=== PATIENT | male | born 1960 | race Caucasian/White ===

== ENCOUNTER 2018-10-21 21:15 | Inpatient (IN) ==
[2018-10-21] MEDS ORDERED: DILTIAZEM 25 MG/5 ML VIAL IV ONE (21:22)
[2018-10-21] MEDS ORDERED: LACTATED RINGERS 1,000 ML IV ONE (21:22)
--- NOTE | 2018-10-21 21:33 | Emergency Department Note ---
SOB HPI - General Chief Complaint: Shortness of Breath/Dyspnea Stated Complaint: shortness of breath Time Seen by Provider: 10/21/18 21:31 Source: patient Mode of arrival: ambulatory Limitations: no limitations - History of Present Illness Patient discharged from the hospital short time ago. Went home and he felt short of breath. He had specific instructions to return for any sudden shortness of breath and/or chest pain or tachycardia and he did notice some palpitations. Diagnosis having atrial tachycardia with flutter and a 2-1 rate. Left ear with heart rate between 80 and 90 after receiving a by mouth diltiazem. Denies chest pain at this time. Feels a little bit short of breath, is not hypoxic, is not tachypneic MD Complaint: shortness of breath - Related Data Previous Rx's Medication Instructions Recorded Diltiazem [Cardizem Cd] 120 mg PO DAILY #30 cap 10/21/18 Allergies Allergy/AdvReac Type Severity Reaction Status Date / Time No Known Drug Allergies Allergy Unverified 10/19/18 16:03 Review of Systems All systems ED: reviewed and negative except as stated. Past Medical History - Past Medical History Medical history: Reports: other (history of atrial flutter, history of pulmonary fibrosis.) Surgical history ED: Reports: non-contributory Family history: Reports: no significant family history - Social History smoking status: Former smoker Alcohol use: Reports: Rarely Drug use: Reports: none Physical Exam Limitations: no limitations General appearance: alert, anxious, in no apparent distress Head: atraumatic, normocephalic Eye: Present: normal appearance, PERRL, EOMI, conjunctival injection ENT: normal exam, normal oropharynx, mucous membranes moist, TM's normal bilaterally Neck: Present: normal inspection, full ROM, trachea midline Chest: Present: normal inspection, symmetric chest wall rise. Absent: tenderness Respiratory: Present: normal lung sounds bilaterally. Absent: respiratory distress, rales/crackles Cardiovascular: Present: regular rate, normal rhythm, tachycardia, normal heart sounds Abdominal: Present: soft, normal bowel sounds. Absent: distention, tenderness : Present: normal inspection Extremities: Present: normal inspection Back: Present: normal inspection. Absent: CVA tenderness (R), CVA tenderness (L) Neurological: Present: alert, oriented X3, CN II-XII intact. Absent: motor sensory deficit Psychiatric: Present: normal affect Skin: Present: warm, dry, intact, erythema, other (slight facial erythema) Course Vital Signs Temperature 97.5 F 10/21/18 21:16 Pulse Rate 132 H 10/21/18 21:16 Respiratory Rate 18 10/21/18 21:16 Blood Pressure 148/111 10/21/18 21:16 Pulse Oximetry (%) 94 10/21/18 21:16 Temperature 97.5 F 10/21/18 21:16 Pulse Rate 132 H 10/21/18 22:57 Respiratory Rate 20 10/21/18 22:57 Blood Pressure 118/87 10/21/18 22:53 Pulse Oximetry (%) 93 10/21/18 22:57 Shortness of Breath/Dyspnea - [facility] Narrative Medical decision making narrative: His second troponin was negative. We did do a lateral chest x-ray now showing a little bit of fluid behind his heart. I believe he has CHF associated with his rapid atrial rate. Normal CBC thus I do not think it is infectious. Final diagnosis atrial flutter, new onset with rapid ventricular rate. Controlled with diltiazem IV. Also by mouth Cardizem. He still needs further monitoring, he did get 20 of Lasix IV and is currently diuresing. Discussed hospital admission/observation with Dr. Anand - Lab Data Lab Results 10/21/18 Range/Units 21:28 Troponin T < 0.01 (0-0.03) ng/ml Disposition Pt seen by STITCHER OPERATOR/PA only: No Clinical Impression: Atrial flutter Disposition: Xfer As Inpt ([facility]) Condition: Good Referrals: Millie Harrington, [Primary Care Provider] -
[2018-10-21] MEDS ORDERED: FUROSEMIDE 20 MG/2 ML VIAL IV ONE (22:16)
[2018-10-21] MEDS ORDERED: POTASSIUM CHLORIDE 10 MEQ TABLET PO ONE (22:17)
--- NOTE | 2018-10-22 00:05 | Internal Med History&Physical ---
Medical - H&P: HPI Patient information: Note initiated : 10/22/18 at 12:00 am Service Date, if different from initiated Date: [] Patient: Shay Ramirez a 58 y/o M admitted on for shortness of breath. Chief Complaint: [] History of present illness: Mr. Ramirez is a 58 year old M presents with shortness of breath. Patient states she had increased shortness of breath for 1 month ever since he got sick with upper respiratory tract infection or a sinus infection at [facility]. He has had a productive cough of sputum which is sometimes clear sometimes yellow sometimes white, this cough is been present since he got sick a month ago however the cough is much better. Shortness of breath is since she stayed the same. He saw a primary care provider who had a CT of the chest that showed some atelectasis and old scarring and a referral was made to pulmonology but he has not seen breeding manager yet. He was also referred to see Dr. Arce who said he saw a year ago and was told he had an irregular rhythm but no new medications were started he also told he had poor cardiac function but no medications were started at that time. He called Dr. Arce's office today to make an appointment and they asked about his symptoms after told him he has had a heart elevated heart rate for a month as well as some shortness of breath they told him to go to the ER. In the ER earlier today he is had a tachycardia 130s. Case discussed with cleaning associate at [facility] Dr. Catalan patient was given a p.o. diltiazem whi ch brought his heart rate down. EKG which was reviewed between ER physician and cleaning associate appear to be flutter 2-1 at that time. Now it appears to be variable block flutter. His heart rate is essentially controlled at rest but anytime he moves it will jump up to 120s 130s. He did not receive any improvement in his shortness of breath after better rate controlled earlier today in the ER. And was still short of breath when he went home and thus came back. He denies any chest pain. He has good oxygenation. Chest x-ray showed some cephalization and prominent pulmonary vasculature. Was given Lasix 20 IV in the ER with 650 urine output. He denies any new leg swelling he does have a little bit of puffiness that he notices while wearing work boots but that has not changed in the past couple months. 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 denies headache/fever/chills/nausea/vomiting/chest or abdominal pain/cough/dyspnea/diarrhea. 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) History of tobacco abuse (Chronic) Pinched nerve (Chronic ~2015) Psoriasis (Chronic ~2001) Varicose veins of both lower extremities (Chronic ~2015) Arthritis (Chronic ~2009) Genital herpes simplex (Acute ~1979) Past Surgical History (Last Reviewed 10/19/18 @ 16:21 by Millie Harrington DO) H/O colonoscopy (Acute) History of herniorrhaphy (Chronic ~2007) History of umbilical hernia repair (Chronic ~1974) Family History (Last Reviewed 10/19/18 @ 16:21 by Millie Harrington DO) Grandfather Lung cancer Social History (Last Updated 10/19/18 @ 20:24 by Millie Harrington DO) Patient quit smoking 2003, denies alcohol use, denies drug use, 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, lives by himself Home medications include aspirin occasionally and a statin Medical - H&P: Meds Home Medications Medication Instructions Recorded Confirmed Type Cephalexin [Keflex] 500 mg PO BID 10/21/18 10/21/18 History Diltiazem [Cardizem Cd] 120 mg PO DAILY #30 cap 10/21/18 10/21/18 Rx Allergies Allergy/AdvReac Type Severity Reaction Status Date / Time No Known Drug Allergies Allergy Unverified 10/19/18 16:03 Medical - H&P: Exam - Constitutional Vitals: Temp Pulse Resp BP Pulse Ox 97.5 F 52 L 15 106/70 94 10/21/18 21:16 10/21/18 23:37 10/21/18 23:37 10/21/18 23:32 10/21/18 23:37 Exam: General: Alert, Awake, No acute Distress Eyes/N/T: EOMI, PEERL, Head/Neck: neck supple, normocephalic atraumatic, unable to appreciate JVD given his neck girth CV: Irregular, No murmurs, normal s1/s2 Pulm: Bilateral rales noted, to mid lung on right, no wheezing Abd: soft, nontender, +BS x4 Ext: no clubbing/cyanosis, trace bilateral lower extremity edema Neuro: Alert, no focal deficits, moves all extremities, CN 2-12 grossly intact, symmetrical strength b/l upper/lower, sensations intact b/l upper/lower Skin: warm/dry Medical - H&P: Reslt - Labs Labs: Cardiac Enzymes 10/21/18 Range/Units 21:28 Troponin T < 0.01 (0-0.03) ng/ml - Impressions Chest x-ray with pulmonary edema Medical - H&P: A/P - Narrative A/P Narrative: A: *acute on chronic systolic CHF: *Aflutter w/variable av block: -chadsvasc=1 *dyspnea: 2/2 above + underlying fibrosis/scarring & atelectasis *CKD II: * * P: -IV lasix, PO aldactone -echo pending -i/o, weights -prn lopressor (avoid CCB given low EF), start toprol in AM and ACEI when renal fxn stable -ASA -f/u CXR - -f/u outpt with Arce and Pulmonology -ppx: lovenox
[2018-10-22] MEDS ORDERED: SENNOSIDES 1 TABLET PO PRN ×2 (00:26→11:28)
[2018-10-22] MEDS ORDERED: POLYETHYLENE GLYCOL 3350 17 GM PACKET PO PRN ×2 (00:26→11:28)
[2018-10-22] MEDS ORDERED: ONDANSETRON 4 MG/2 ML VIAL IV PRN ×2 (00:26→11:28)
[2018-10-22] MEDS ORDERED: ACETAMINOPHEN 325 MG TABLET PO PRN ×2 (00:26→11:28)
[2018-10-22] MEDS ORDERED: IPRATROPIUM/ALBUTEROL 3 ML AMPUL.NEB NEB PRN ×2 (00:26→11:28)
[2018-10-22] MEDS ORDERED: POTASSIUM CHLORIDE 40 MEQ in DEXTROSE 5% IN WATER 500 ML IV PRN ×2 (00:26→11:28)
[2018-10-22] MEDS ORDERED: MAGNESIUM SULFATE 2 GM/50 ML BAG IV PRN ×2 (00:26→11:28)
[2018-10-22] MEDS ORDERED: LACTULOSE 20 GM/30 ML ORAL.SOL PO PRN ×2 (00:26→11:28)
[2018-10-22] MEDS ORDERED: POTASSIUM CHLORIDE 20 MEQ TABLET PO PRN ×4 (00:26→11:28)
--- NOTE | 2018-10-22 03:58 | XRay Report ---
CLINICAL INFORMATION: SOB COMPARISON: 10/21/2018 FINDINGS: The heart is moderately enlarged, but unchanged. Mediastinum is unremarkable. The pulmonary vessels have increased in caliber and are now moderately congested. Interstitial edema throughout both lungs show slight progression. Moderate patchy superimposed patchy airspace disease in the right mid and lower lung as progressed. There are small bilateral pleural effusions IMPRESSION: Moderate CHF - progressing from film earlier today Moderate patchy airspace disease in the right mid and lower lung likely represents superimposed infiltrate, rather than atypically distributed edema. Small bilateral pleural effusions Interpreted and Authenticated by: Wilfred Marr 10/22/18
[2018-10-22 05:01] LABS: Basophils # (Auto) 0 K/mcL (0.0-0.3); Basophils % (Auto) 0.5 % (0.0-2.0); Eosinophils # (Auto) 0 K/mcL (0.0-0.7); Eosinophils % (Auto) 0 % (0.0-7.0); Granulocytes % (Auto) 70.9 % (38.0-78.0); Lymphocytes # (Auto) 1.3 K/mcL (1.5-4.8); Lymphocytes % (Auto) 19.6 % (15.5-49.0); Mean Cell Volume 90.8 fL (80.0-100.0); Mean Corpuscular HGB Conc 32.7 g/dL (31.0-36.0); Monocytes # (Auto) 0.6 K/mcL (0.1-0.9); Platelet Count 163 K/mcL (140-440); RBC 5.35 M/mcL (4.50-5.90); Red Cell Distribution Width 14.3 % (11.5-14.5)
[2018-10-22 05:16] LABS: ALT/SGPT 33 U/l (0-40); Albumin 3.4 gm/dL (3.2-5.2); Albumin/Globulin Ratio 1.4 (1.0-2.3); Alkaline Phosphatase 45 U/L (39-117); Bilirubin,Direct 0.2 mg/dL (0.0-0.3); Blood Urea Nitrogen 18 mg/dl (6-20); Gamma Glutamyl Transpeptidase 31 U/L (8-61); Uric Acid 6.6 mg/dL (2.5-8.0)
[2018-10-22] MEDS ORDERED: 0.9 % SODIUM CHLORIDE 10 ML SYRINGE IV SCH (06:00)
--- NOTE | 2018-10-22 06:26 | Internal Med Progress Note ---
Medical - PN: Subj Patient information: Note initiated : 10/22/18 at 6:24 am Service Date, if different from initiated Date: [] Patient: Shay Ramirez a 58 y/o M admitted on 10/22/18 for shortness of breath. Chief Complaint: [] Interval history: Mr. Ramirez is a 58 year old M presents with shortness of breath. Patient states she had increased shortness of breath for 1 month ever since he got sick with upper respiratory tract infection or a sinus infection at [facility]. He has had a productive cough of sputum which is sometimes clear sometimes yellow sometimes white, this cough is been present since he got sick a month ago however the cough is much better. Shortness of breath is since she stayed the same. He saw a primary care provider who had a CT of the chest that showed some atelectasis and old scarring and a referral was made to pulmonology but he has not seen reeling machine setup operator yet. He was also referred to see Dr. Arce who said he saw a year ago and was told he had an irregular rhythm but no new medications were started he also told he had poor cardiac function but no medications were started at that time. He called Dr. Arce's office today to make an appointment and they asked about his symptoms after told him he has had a heart elevated heart rate for a month as well as some shortness of breath they told him to go to the ER. In the ER earlier today he is had a tachycardia 130s. Case discussed with national guard member at [facility] Dr. Catalan patient was given a p.o. diltiazem which brought his heart rate down. EKG which was reviewed between ER physician and national guard member appear to be flutter 2-1 at that time. Now it appears to be variable block flutter. His heart rate is essentially controlled at rest but anytime he moves it will jump up to 120s 130s. He did not receive any improvement in his shortness of breath after better rate controlled earlier today in the ER. And was still short of breath when he went home and thus came back. He denies any chest pain. He has good oxygenation. Chest x-ray showed some cephalization and prominent pulmonary vasculature. Was given Lasix 20 IV in the ER with 650 urine output. He denies any new leg swelling he does have a little bit of puffiness that he notices while wearing work boots but that has not changed in the past couple months. 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 No new complaints. No shortness of breath at rest. No lightheadedness. Review of Systems: denies headache/fever/chills/nausea/vomiting/chest or abdominal pain/cough/dyspnea/diarrhea. Otherwise see above. - Constitutional Vitals: Vital Signs Temp Pulse Resp BP Pulse Ox 98.0 F 67 16 123/72 91 10/22/18 04:01 10/22/18 06:01 10/22/18 06:01 10/22/18 06:01 10/22/18 06:01 Period Temp Pulse Resp BP Sys/Smith Pulse Ox Last 24 Hr 97.5 F-98.4 F 48-132 14-25 106-153/58-111 89-96 Intake and Output 10/21/18 10/22/18 10/22/18 21:59 05:59 13:59 Intake Total 312 / 312 Output Total 1575 / 1575 Balance -1263 / -1263 Weight 102.058 kg 102.058 kg Intake & Output: Intake & Output 10/21/18 10/22/18 10/22/18 21:59 05:59 13:59 Intake Total 312 / 312 Output Total 1575 / 1575 Balance -1263 / -1263 Weight 102.058 kg 102.058 kg Intake: IV 312 / 312 Lactated Ringers 1,000 ml @ 312 / 312 Wide Open IV BOLUS ONE Rx#: [id number] Output: Urine Catheter Amount 225 / 225 Void Amount 1350 / 1350 Other: Urine Appearance Clear Urine Color Light Kayleigh # Voids 1 Exam: General: Alert, Awake, No acute Distress Eyes/N/T: EOMI, Head/Neck: neck supple, CV: Irregular, No murmurs, Pulm: Bilateral rales noted, to mid lung on right, no wheezing Abd: soft, nontender, +BS x4 Ext: no clubbing/cyanosis, trace-1+ b/l LE edema (R>L) Neuro: Alert, no focal deficits, moves all extremities, Skin: warm/dry Medical - PN: Obj Da - Labs CBC & Chem 7: 10/22/18 03:47 10/22/18 03:47 Labs: Abnormal Lab Results 10/22/18 10/22/18 03:47 03:47 Lymph # (Auto) 1.3 L Calcium 8.4 L Phosphorus 2.1 L Total Bilirubin 1.1 H Total Protein 5.8 L Meds: Medications Acetaminophen (Tylenol) 650 mg PO Q6HP PRN PRN Reason: PAIN/FEVER > 101 Albuterol/Ipratropium (Duoneb) 3 ml NEB Q4HP PRN PRN Reason: Shortness Of Breath Aspirin (Ecotrin) 81 mg PO DAILY [facility] Enoxaparin Sodium (Lovenox) 40 mg SQ DAILY [facility] Furosemide (Lasix) 40 mg IV BIDD [facility] Potassium Chloride 40 meq/ (Dextrose) 520 mls @ 130 mls/hr IV ONCE PRN PRN Reason: Potassium < 3 Magnesium Sulfate (Magnesium Sulfate) 2 gm in 50 mls @ 50 mls/hr IV ONCE PRN PRN Reason: Magnesium </= 1.6 Lactulose (Cephulac) 10 gm PO DAILYP PRN PRN Reason: Constipation Metoprolol Succinate (Toprol Xl) 12.5 mg PO DAILY [facility] Metoprolol Tartrate (Lopressor) 5 mg IV Q2HP PRN PRN Reason: hr>110 sustained Ondansetron HCl (Zofran) 4 mg IV Q4HP PRN PRN Reason: Nausea And Vomiting Polyethylene Glycol (Miralax) 17 gm PO DAILYP PRN PRN Reason: Constipation Potassium Chloride (Kdur) 40 meq PO ONCE PRN PRN Reason: Potssium is 3-3.5 Potassium Chloride (Kdur) 40 meq PO ONCE PRN PRN Reason: Potassium < 3 Senna (Senokot) 2 tab PO HSP PRN PRN Reason: Constipation Sodium Chloride (Saline Flush) 10 ml IV Q8 [facility] Last Admin: 10/22/18 05:42 Dose: 10 ml Documented by: Spironolactone (Aldactone) 25 mg PO DAILY [facility] Medical - PN: A/P - Time Spent With Patient Total time spent is greater than 50% in coordination of care (as documented) at patient's floor/unit and/or counseling patient: - Narrative A/P Narrative: A: *acute on chronic systolic CHF: *Aflutter w/variable av block and RVR: -chadsvasc=1 *dyspnea: 2/2 above + underlying fibrosis/scarring & atelectasis *CKD II: * P: -IV lasix, PO aldactone -echo pending -i/o, weights -prn lopressor (avoid CCB given low EF), start low dose toprol in AM and ACEI when renal fxn stable -ASA -f/u CXR - -f/u outpt with Arce and Pulmonology -ppx: lovenox Medical - PN: Qual - VTE Deep Vein Thrombosis/Pulmonary Embolism Present on Admission: No
[2018-10-22] MEDS: METOPROLOL TARTRATE 5 MG/5 ML VIAL IV PRN ×2 (07:03→10:59)
[2018-10-22] MEDS ORDERED: FUROSEMIDE 40 MG/4 ML VIAL IV SCH ×2 (08:00→16:00)
[2018-10-22] MEDS ORDERED: ENOXAPARIN 40 MG/0.4 ML SYRINGE SQ SCH (09:00)
[2018-10-22] MEDS ORDERED: SPIRONOLACTONE 25 MG TABLET PO SCH (09:00)
[2018-10-22] MEDS ORDERED: ASPIRIN 81 MG TAB.CHEW PO SCH (09:00)
[2018-10-22] MEDS ORDERED: METOPROLOL SUCCINATE 25 MG TAB.XL.24H PO SCH (09:00)
--- NOTE | 2018-10-22 10:47 | XRay Report ---
CLINICAL INFORMATION: chf COMPARISON: 10/21/2018 FINDINGS: Moderate cardiomegaly show slight decrease from yesterday. Mediastinum is unremarkable. Pulmonary vessels have decreased in caliber and now are only mildly distended. Interstitial edema in both lungs shows partial clearance. Small patchy bibasilar infiltrates or atelectasis have also improved. Small bilateral pleural effusions are unchanged IMPRESSION: Mild CHF - improving considerably from yesterday Mild patchy bilateral lower lobe infiltrates or atelectasis also improving Stable small bilateral pleural effusions Interpreted and Authenticated by: Wilfred Marr 10/22/18
[2018-10-22] MEDS ORDERED: METOPROLOL TARTRATE 5 MG/5 ML VIAL IV PRN (11:28)
[2018-10-22] MEDS ORDERED: AMIODARONE HCL 200 MG TABLET PO ONE ×2 (14:02→23:00)
[2018-10-22] MEDS: 0.9 % SODIUM CHLORIDE 10 ML SYRINGE IV SCH ×2 (14:40→21:33)
[2018-10-22] MEDS: FUROSEMIDE 20 MG/2 ML VIAL IV SCH (16:03)
[2018-10-23] MEDS: 0.9 % SODIUM CHLORIDE 10 ML SYRINGE IV SCH ×3 (05:32→22:05)
--- NOTE | 2018-10-23 07:31 | Internal Med Progress Note ---
Medical - PN: Subj Patient information: Note initiated : 10/23/18 at 7:21 am Service Date, if different from initiated Date: [] Patient: Shay Ramirez a 58 y/o M admitted on 10/22/18 for shortness of breath. Chief Complaint: [] Interval history: Mr. Ramirez is a 58 year old M presents with shortness of breath. Patient states she had increased shortness of breath for 1 month ever since he got sick with upper respiratory tract infection or a sinus infection at [facility]. He has had a productive cough of sputum which is sometimes clear sometimes yellow sometimes white, this cough is been present since he got sick a month ago however the cough is much better. Shortness of breath is since she stayed the same. He saw a primary care provider who had a CT of the chest that showed some atelectasis and old scarring and a referral was made to pulmonology but he has not seen government program manager yet. He was also referred to see Dr. Arce who said he saw a year ago and was told he had an irregular rhythm but no new medications were started he also told he had poor cardiac function but no medications were started at that time. He called Dr. Arce's office today to make an appointment and they asked about his symptoms after told him he has had a heart elevated heart rate for a month as well as some shortness of breath they told him to go to the ER. In the ER earlier today he is had a tachycardia 130s. Case discussed with heavy duty truck mechanic at [place]'s Dr. Catalan patient was given a p.o. diltiazem which brought his heart rate down. EKG which was reviewed between ER physician and heavy duty truck mechanic appear to be flutter 2-1 at that time. Now it appears to be variable block flutter. His heart rate is essentially controlled at rest but anytime he moves it will jump up to 120s 130s. He did not receive any improvement in his shortness of breath after better rate controlled earlier today in the ER. And was still short of breath when he went home and thus came back. He denies any chest pain. He has good oxygenation. Chest x-ray showed some cephalization and prominent pulmonary vasculature. Was given Lasix 20 IV in the ER with 650 urine output. He denies any new leg swelling he does have a little bit of puffiness that he notices while wearing work boots but that has not changed in the past couple months. 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 No new complaints. No shortness of breath at rest. No lightheadedness. 10/23 Rate 80s-90s while sleeping. This morning while awake and moving seems to be consistently be high 20s-130. Denies any chest pain shortness of breath. Ambulated to the shower without problems. Started on oral amio 400 tid yesterday, but still uncontrolled rate although essentially asymptomatic on last he exerts himself quite a bit. Did discuss case with Dr. Arce recommended IV amiodarone load instead of oral. Review of Systems: denies headache/fever/chills/nausea/vomiting/chest or abdominal pain/cough/dyspnea/diarrhea. Otherwise see above. - Constitutional Vitals: Vital Signs Temp Pulse Resp BP Pulse Ox 98.2 F 129 H 18 94/64 95 10/23/18 04:21 10/22/18 17:10 10/23/18 04:21 10/23/18 04:21 10/23/18 04:21 Period Temp Pulse Resp BP Sys/Smith Pulse Ox Last 24 Hr 98.2 F-98.6 F 57-129 16-22 94-147/63-128 91-97 Intake and Output 10/22/18 10/23/18 10/23/18 21:59 05:59 13:59 Intake Total 1100 / 2380 200 / 2380 Output Total 1924 100 / 4275 800 / 800 Balance -825 / -1895 100 / -1895 -800 / -800 Weight 100.788 kg Intake & Output: Intake & Output 10/22/18 10/23/18 10/23/18 21:59 05:59 13:59 Intake Total 1100 / 2380 200 / 2380 Output Total 1924 100 / 4275 800 / 800 Balance -825 / -1895 100 / -1895 -800 / -800 Weight 100.788 kg Intake: Oral 1100 / 2380 200 / 2380 Output: Void Amount 1924 100 / 4274 800 / 800 Other: Meal snack Percent of Meal Consumed 100% Feeding Ability Independent Urine Appearance Clear Urine Color Bright Yellow Urine Odor Normal Exam: General: Alert, Awake, No acute Distress Eyes/N/T: EOMI, Head/Neck: neck supple, CV: Irregular and tachy, No murmurs, Pulm: Bilateral rales noted, to mid lung on right, no wheezing Abd: soft, nontender, +BS x4 Ext: no clubbing/cyanosis, trace-1+ b/l LE edema (R>L) Neuro: Alert, no focal deficits, moves all extremities, Skin: warm/dry Medical - PN: Obj Da - Labs CBC & Chem 7: 10/22/18 03:47 10/22/18 03:47 Labs: Abnormal Lab Results 10/22/18 10/22/18 03:47 03:47 Lymph # (Auto) 1.3 L Calcium 8.4 L Phosphorus 2.1 L Total Bilirubin 1.1 H Total Protein 5.8 L Meds: Medications Acetaminophen (Tylenol) 650 mg PO Q6HP PRN PRN Reason: PAIN/FEVER > 101 Albuterol/Ipratropium (Duoneb) 3 ml NEB Q4HP PRN PRN Reason: Shortness Of Breath Amiodarone HCl (Cordarone) 400 mg PO TIDCC [facility] Aspirin (Aspirin) 81 mg PO DAILY [facility] Enoxaparin Sodium (Lovenox) 40 mg SQ DAILY [facility] Furosemide (Lasix) 20 mg IV BIDD [facility] Last Admin: 10/22/18 16:03 Dose: 20 mg Documented by: Potassium Chloride 40 meq/ (Dextrose) 520 mls @ 130 mls/hr IV ONCE PRN PRN Reason: Potassium < 3 Magnesium Sulfate (Magnesium Sulfate) 2 gm in 50 mls @ 50 mls/hr IV ONCE PRN PRN Reason: Magnesium </= 1.6 Lactulose (Cephulac) 10 gm PO DAILYP PRN PRN Reason: Constipation Metoprolol Succinate (Toprol Xl) 12.5 mg PO DAILY [facility] Metoprolol Tartrate (Lopressor) 5 mg IV Q2HP PRN PRN Reason: hr>110 sustained Last Admin: 10/22/18 16:03 Dose: 5 mg Documented by: Ondansetron HCl (Zofran) 4 mg IV Q4HP PRN PRN Reason: Nausea And Vomiting Polyethylene Glycol (Miralax) 17 gm PO DAILYP PRN PRN Reason: Constipation Potassium Chloride (Kdur) 40 meq PO ONCE PRN PRN Reason: Potssium is 3-3.5 Potassium Chloride (Kdur) 40 meq PO ONCE PRN PRN Reason: Potassium < 3 Senna (Senokot) 2 tab PO HSP PRN PRN Reason: Constipation Sodium Chloride (Saline Flush) 10 ml IV Q8 [facility] Last Admin: 10/23/18 05:32 Dose: 10 ml Documented by: Spironolactone (Aldactone) 25 mg PO DAILY [facility] Medical - PN: A/P - Time Spent With Patient Total time spent is greater than 50% in coordination of care (as documented) at patient's floor/unit and/or counseling patient: - Narrative A/P Narrative: A: *acute on chronic systolic CHF: improving -echo showing EF 25%, mod MR, LAE, PAH, *Aflutter w/variable av block and RVR: -chadsvasc=1 -better rate control with activity yesterday *dyspnea: 2/2 above + underlying fibrosis/scarring & atelectasis *CKD II: * P: -IV lasix decrease, PO aldactone -i/o, weights -prn lopressor (avoid CCB given low EF), start low dose toprol yesterday (will not uptitrate given low bp) add ACEI eventually when BP allows -added PO amio yesterday for difficult to control rate with activity, dig may be a good alternative given LV fxn, but still HR 130 while awake; discused with Dr. Arce regarding amio vs Dig and other recs, he recommended IV amio load. f/u in office. -he will also need to be evaluated for possible AICD after optimal duration on optimal medical therapy -ASA -f/u outpt with Yazmin and Pulmonology -ppx: [facility] Medical - PN: Qual - VTE Deep Vein Thrombosis/Pulmonary Embolism Present on Admission: No
[2018-10-23] MEDS ORDERED: AMIODARONE HCL 200 MG TABLET PO SCH (08:00)
[2018-10-23] MEDS: FUROSEMIDE 20 MG/2 ML VIAL IV SCH ×2 (08:31→15:59)
[2018-10-23] MEDS ORDERED: SPIRONOLACTONE 25 MG TABLET PO SCH (09:00)
[2018-10-23] MEDS: METOPROLOL SUCCINATE 25 MG TAB.XL.24H PO SCH (09:12)
[2018-10-23] MEDS: ASPIRIN 81 MG TAB.CHEW PO SCH (09:12)
[2018-10-23] MEDS: ENOXAPARIN 40 MG/0.4 ML SYRINGE SQ SCH (09:13)
[2018-10-23] MEDS ORDERED: AMIODARONE 150 MG in DEXTROSE 5% IN WATER 50 ML IV ONE (10:00)
[2018-10-23] MEDS ORDERED: AMIODARONE 360 MG in PREMIX 1 BAG IV SCH (11:00)
--- NOTE | 2018-10-23 11:26 | Discharge Summary ---
Medical - DS: Prov Patient information: Note initiated : 10/23/18 at 11:24 am Service Date, if different from initiated Date: [] Patient: Shay Ramirez 58 y/o M admitted on 10/22/18 for shortness of breath. Chief Complaint: [] Date of admission: 10/22/18 00:24 Discharge date: 10/24/18 Primary care physician: Millie Harrington DO Consults: 10/21/18 Consult to Physician [CONS] Stat Comment: Consulting Provider: Jamari Lopez Reason For Exam: Physician to Consult Medical - DS: Meds - Discharge Medications Prescriptions: Amiodarone HCl [Cordarone] 400 mg PO BIDCC #60 tab Aspirin 81 mg PO DAILY #30 tab.chew Furosemide [Lasix] 20 mg PO DAILY #30 tab Lisinopril [Zestril] 2.5 mg PO DAILY #30 tab Metoprolol Succinate [Toprol Xl] 25 mg PO DAILY #30 tab.xl.24h Spironolactone [Aldactone] 25 mg PO DAILY #30 tab Active and Home Medications: Home Medications Cephalexin [Keflex] 500 mg PO BID 10/21/18 [History Confirmed 10/21/18 Last Taken Unknown] Diltiazem [Cardizem Cd] 120 mg PO DAILY #30 cap 10/21/18 [Rx Confirmed 10/21/18 Last Taken Unknown] Home Medications Amiodarone HCl [Cordarone] 400 mg PO BIDCC #60 tab 10/24/18 [Rx Last Taken Unknown] Aspirin 81 mg PO DAILY #30 tab.chew 10/24/18 [Rx Last Taken Unknown] Furosemide [Lasix] 20 mg PO DAILY #30 tab 10/24/18 [Rx Last Taken Unknown] Lisinopril [Zestril] 2.5 mg PO DAILY #30 tab 10/24/18 [Rx Last Taken Unknown] Metoprolol Succinate [Toprol Xl] 25 mg PO DAILY #30 tab.xl.24h 10/24/18 [Rx Last Taken Unknown] Spironolactone [Aldactone] 25 mg PO DAILY #30 tab 10/24/18 [Rx Last Taken Unknown] Medical - DS: Hosp Hospital course: Mr. Ramirez is a 58 year old M Mr. Ramirez is a 58 year old M presents with shortness of breath. Patient states she had increased shortness of breath for 1 month ever since he got sick with upper respiratory tract infection or a sinus infection at [facility]. He has had a productive cough of sputum which is sometimes clear sometimes yellow sometimes white, this cough is been present since he got sick a month ago however the cough is much better. Shortness of breath is since she stayed the same. He saw a primary care provider who had a CT of the chest that showed some atelectasis and old scarring and a referral was made to pulmonology but he has not seen partner management consultant yet. He was also referred to see Dr. Arce who said he saw a year ago and was told he had an irregular rhythm but no new medications were started he also told he had poor cardiac function but no medications were started at that time. He called Dr. Arce's office today to make an appointment and they asked about his symptoms after told him he has had a heart elevated heart rate for a month as well as some shortness of breath they told him to go to the ER. In the ER earlier today he is had a tachycardia 130s. Case discussed with contract post office clerk at [place]'s Dr. Catalan patient was given a p.o. diltiazem which brought his heart rate down. EKG which was reviewed between ER physician and contract post office clerk appear to be flutter 2-1 at that time. Now it appears to be variable block flutter. His heart rate is essentially controlled at rest but anytime he moves it will jump up to 120s 130s. He did not receive any improvement in his shortness of breath after better rate controlled earlier today in the ER. And was still short of breath when he went home and thus came back. He denies any chest pain. He has good oxygenation. Chest x-ray showed some cephalization and prominent pulmonary vasculature. Was given Lasix 20 IV in the ER with 650 urine output. He denies any new leg swelling he does have a little bit of puffiness that he notices while wearing work boots but that has not changed in the past couple months. 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 No new complaints. No shortness of breath at rest. No lightheadedness. 1/18 Rate 80s-90s while sleeping. This morning while awake and moving seems to be consistently be high 20s-130. Denies any chest pain shortness of breath. Ambulated to the shower without problems. Started on oral amio 400 tid yesterday, but still uncontrolled rate although essentially asymptomatic on last he exerts himself quite a bit. Did discuss case with Dr. Arce recommended IV amiodarone load instead of oral. Discharge diagnosis: Atrial flutter with RVR acute on chronic systolic heart failure Secondary discharge diagnosis: Pulmonary fibrosis scarring CKD 2 - Time Spent with Patient Total time spent providing and/or coordinating discharge services: Greater than 30 minutes Medical - DS: Exam - Constitutional Vitals: Vital Signs Temp Pulse Pulse Resp BP BP Pulse Ox 10/23/18 07:40 98.7 F 16 124/95 95 10/23/18 04:21 98.2 F 18 94/64 95 10/22/18 23:22 97/66 10/22/18 20:00 98.5 F 18 120/82 95 10/22/18 19:39 120/82 10/22/18 17:10 129 H 101/71 95 10/22/18 16:00 98.6 F 117 H 18 118/80 95 10/22/18 15:46 118/80 10/22/18 15:42 129 H 147/128 95 10/22/18 12:31 98.6 F 22 119/87 97 Intake and Output 10/22/18 10/23/18 10/23/18 21:59 05:59 13:59 Intake Total 1100 / 2380 200 / 2380 533 / 533 Output Total 1924 169 / 169 Balance -825 / -1895 100 / -1895 -1162 / -1162 Intake: IV 53 / 53 Cordarone 150 mg In Dextrose 5% 53 / 53 in Water 50 ml @ 300 mls/hr IV ONCE ONE Rx#:[id number] Oral 1100 / 2380 200 / 2380 480 / 480 Output: Void Amount 1924 / 5 1695 / 1695 Other: Meal snack Breakfast Percent of Meal Consumed 100% 100% Feeding Ability Independent Independent Urine Appearance Clear Urine Color Bright Yellow Urine Odor Normal Stool Size Moderate Stool Color Brown Stool Consistency Normal for Patient Soft # Voids 1 # Bowel Movements 1 Weight 100.788 kg Medical - DS: A/P - Patient/Caregiver Discharge Instructions Activity: increase activity as tolerated Diet: Cardiac Prescriptions: Amiodarone HCl [Cordarone] 400 mg PO BIDCC #60 tab Aspirin 81 mg PO DAILY #30 tab.chew Furosemide [Lasix] 20 mg PO DAILY #30 tab Lisinopril [Zestril] 2.5 mg PO DAILY #30 tab Metoprolol Succinate [Toprol Xl] 25 mg PO DAILY #30 tab.xl.24h Spironolactone [Aldactone] 25 mg PO DAILY #30 tab Other Amb Orders: Comprehensive Metabolic Panel Time Frame: 1 Week, Location: None Selected - Follow up Plan Follow up with: Millie Harrington DO [Primary Care Provider] - Andres Arce MD [Physician] - Haydee Lance MD [Physician] - (evaluate for AICD) Disposition: Home, Self-Care Prognosis: Undetermined Rehab Potential: Fair Medical - DS: Qual - VTE Deep Vein Thrombosis/Pulmonary Embolism Present on Admission: No
[2018-10-23] MEDS ORDERED: diphenhydrAMINE 50 MG/ML VIAL IV ONE (16:00)
[2018-10-23] MEDS: AMIODARONE 360 MG in PREMIX 1 BAG IV SCH ×2 (16:59→23:33)
[2018-10-23] MEDS ORDERED: LORazepam 2 MG/ML VIAL IV ONE (17:18)
[2018-10-23] MEDS ORDERED: LORazepam 2 MG/ML VIAL IV PRN (17:18)
[2018-10-23] MEDS ORDERED: LORazepam 2 MG/ML VIAL ONE (17:50)
[2018-10-24] MEDS: AMIODARONE 360 MG in PREMIX 1 BAG IV SCH (04:37)
[2018-10-24] MEDS: 0.9 % SODIUM CHLORIDE 10 ML SYRINGE IV SCH (04:38)
[2018-10-24 06:09] LABS: ALT/SGPT 33 U/l (0-40); Albumin 3.6 gm/dL (3.2-5.2); Albumin/Globulin Ratio 1.3 (1.0-2.3); Alkaline Phosphatase 52 U/L (39-117); Bilirubin,Direct < 0.2 mg/dL (0.0-0.3); Blood Urea Nitrogen 31 mg/dl (6-20); Gamma Glutamyl Transpeptidase 45 U/L (8-61); Uric Acid 7.8 mg/dL (2.5-8.0)
[2018-10-24] MEDS ORDERED: DIGOXIN 500 MCG/2 ML AMPUL IV ONE (07:08)
--- NOTE | 2018-10-24 07:11 | Internal Med Progress Note ---
Medical - PN: Subj Patient information: Note initiated : 10/24/18 at 7:06 am Service Date, if different from initiated Date: [] Patient: Shay Ramirez a 58 y/o M admitted on 10/22/18 for shortness of breath. Chief Complaint: [] Interval history: Mr. Ramirez is a 58 year old M presents with shortness of breath. Patient states she had increased shortness of breath for 1 month ever since he got sick with upper respiratory tract infection or a sinus infection at [facility]. He has had a productive cough of sputum which is sometimes clear sometimes yellow sometimes white, this cough is been present since he got sick a month ago however the cough is much better. Shortness of breath is since she stayed the same. He saw a primary care provider who had a CT of the chest that showed some atelectasis and old scarring and a referral was made to pulmonology but he has not seen manager packaging yet. He was also referred to see Dr. Arce who said he saw a year ago and was told he had an irregular rhythm but no new medications were started he also told he had poor cardiac function but no medications were started at that time. He called Dr. Arce's office today to make an appointment and they asked about his symptoms after told him he has had a heart elevated heart rate for a month as well as some shortness of breath they told him to go to the ER. In the ER earlier today he is had a tachycardia 130s. Case discussed with sales engineer at [place]'s Dr. Catalan patient was given a p.o. diltiazem which brought his heart rate down. EKG which was reviewed between ER physician and sales engineer appear to be flutter 2-1 at that time. Now it appears to be variable block flutter. His heart rate is essentially controlled at rest but anytime he moves it will jump up to 120s 130s. He did not receive any improvement in his shortness of breath after better rate controlled earlier today in the ER. And was still short of breath when he went home and thus came back. He denies any chest pain. He has good oxygenation. Chest x-ray showed some cephalization and prominent pulmonary vasculature. Was given Lasix 20 IV in the ER with 650 urine output. He denies any new leg swelling he does have a little bit of puffiness that he notices while wearing work boots but that has not changed in the past couple months. 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 No new complaints. No shortness of breath at rest. No lightheadedness. 10/23 Rate 80s-90s while sleeping. This morning while awake and moving seems to be consistently be high 20s-130. Denies any chest pain shortness of breath. Ambulated to the shower without problems. Started on oral amio 400 tid yesterday, but still uncontrolled rate although essentially asymptomatic on last he exerts himself quite a bit. Did discuss case with Dr. Arce recommended IV amiodarone load instead of oral. 10/24 Heart weight heart rate around 100 last night with episodes in the 120s, P atient asymptomatic. Walk the halls yesterday without shortness of breath which is significantly improved. overall feels much improved. Patient adamant about leaving. I cautioned him about his condition and his rate that is not quite optimized and instructed him to follow-up closely with cardiology as soon as possible, his sales engineer Dr. Arce. Review of Systems: denies headache/fever/chills/nausea/vomiting/chest or abdominal pain/cough/dyspnea/diarrhea. Otherwise see above. - Constitutional Vitals: Vital Signs Temp Pulse Resp BP Pulse Ox 98.1 F 112 H 18 111/84 92 10/24/18 04:00 10/23/18 20:54 10/24/18 04:00 10/24/18 04:00 10/24/18 04:00 Period Temp Pulse Resp BP Sys/Smith Pulse Ox Last 24 Hr 96.9 F-98.7 F 112-128 16-24 111-150/84-100 92-96 Intake and Output 10/23/18 10/24/18 10/24/18 21:59 05:59 13:59 Intake Total 440 914 Output Total 1000 Balance -560 914 Weight 100.244 kg Intake & Output: Intake & Output 10/23/18 10/24/18 10/24/18 21:59 05:59 13:59 Intake Total 440 914 Output Total 1000 Balance -560 914 Weight 100.244 kg Intake: IV 200 194 Nexterone 360 mg In Premix 1 200 194 Bag @ 1 MG/MIN 33.33 mls/hr IV .Q6H1M [facility] Rx#:[id number] Oral 240 720 Output: Void Amount 1000 Other: Meal Dinner Percent of Meal Consumed 100% Feeding Ability Independent Urine Color Light Kayleigh # Voids 1 Exam: General: Alert, Awake, No acute Distress Eyes/N/T: EOMI, Head/Neck: neck supple, CV: Irregular and tachy, No murmurs, Pulm: clear b/l, no wheezing Abd: soft, nontender, +BS x4 Ext: no clubbing/cyanosis, trace b/l LE edema Neuro: Alert, no focal deficits, moves all extremities, Skin: warm/dry Medical - PN: Obj Da - Labs CBC & Chem 7: 10/22/18 03:47 10/24/18 03:44 Labs: Abnormal Lab Results 10/24/18 10/22/18 10/22/18 03:44 03:47 03:47 Lymph # (Auto) 1.3 L Carbon Dioxide 20 L BUN 31 H Calcium 8.4 L Phosphorus 2.1 L Total Bilirubin 1.1 H Total Protein 5.8 L Meds: Medications Acetaminophen (Tylenol) 650 mg PO Q6HP PRN PRN Reason: PAIN/FEVER > 101 Albuterol/Ipratropium (Duoneb) 3 ml NEB Q4HP PRN PRN Reason: Shortness Of Breath Aspirin (Aspirin) 81 mg PO DAILY [facility] Last Admin: 10/23/18 09:12 Dose: 81 mg Documented by: Enoxaparin Sodium (Lovenox) 40 mg SQ DAILY [facility] Last Admin: 10/23/18 09:13 Dose: 40 mg Documented by: Furosemide (Lasix) 20 mg IV BIDD [facility] Last Admin: 10/23/18 15:59 Dose: 20 mg Documented by: Potassium Chloride 40 meq/ (Dextrose) 520 mls @ 130 mls/hr IV ONCE PRN PRN Reason: Potassium < 3 Magnesium Sulfate (Magnesium Sulfate) 2 gm in 50 mls @ 50 mls/hr IV ONCE PRN PRN Reason: Magnesium </= 1.6 AMIODARONE 360 mg/ Premix 200 mls @ 33.33 mls/hr IV .Q6H1M [facility]; Protocol Stop: 10/24/18 11:00 Last Admin: 10/24/18 04:37 Dose: 0.5 mg/min, 16.67 mls/hr Documented by: Lactulose (Cephulac) 10 gm PO DAILYP PRN PRN Reason: Constipation Lorazepam (Ativan) 0.5 mg IV Q4-6HP PRN PRN Reason: ANXIETY/SEDATION Metoprolol Succinate (Toprol Xl) 12.5 mg PO DAILY [facility] Last Admin: 10/23/18 09:12 Dose: 12.5 mg Documented by: Metoprolol Tartrate (Lopressor) 5 mg IV Q2HP PRN PRN Reason: hr>110 sustained Last Admin: 10/22/18 16:03 Dose: 5 mg Documented by: Ondansetron HCl (Zofran) 4 mg IV Q4HP PRN PRN Reason: Nausea And Vomiting Polyethylene Glycol (Miralax) 17 gm PO DAILYP PRN PRN Reason: Constipation Potassium Chloride (Kdur) 40 meq PO ONCE PRN PRN Reason: Potssium is 3-3.5 Potassium Chloride (Kdur) 40 meq PO ONCE PRN PRN Reason: Potassium < 3 Senna (Senokot) 2 tab PO HSP PRN PRN Reason: Constipation Sodium Chloride (Saline Flush) 10 ml IV Q8 [facility] Last Admin: 10/24/18 04:38 Dose: Not Given Documented by: Spironolactone (Aldactone) 25 mg PO DAILY [facility] Last Admin: 10/23/18 09:13 Dose: 25 mg Documented by: Medical - PN: A/P - Time Spent With Patient Total time spent is greater than 50% in coordination of care (as documented) at patient's floor/unit and/or counseling patient: - Narrative A/P Narrative: A: *acute on chronic systolic CHF: improving -echo showing EF 25%, mod MR, LAE, PAH, *Aflutter w/variable av block and RVR: -chadsvasc=1 -still had difficulty with rate control yesterday, changed to IV Amio load *dyspnea: 2/2 above + underlying fibrosis/scarring & atelectasis -no dyspnea at rest now, dyspnea on exertion improved with diuresis *CKD II: * P: -IV lasix to PO, PO aldactone -i/o, weights -started low dose toprol, uptitrate as bp allows, add ACEI eventually -added PO amio load intially for difficult to control rate with activity, dig may be a good alternative given LV fxn, but still HR 130 while awake; discused with Dr. Arce regarding amio vs Dig and other recs, he recommended IV amio load. f/u in office. -he will also need to be evaluated for possible AICD after optimal duration on optimal medical therapy -ASA -f/u outpt with Yazmin and Pulmonology -ppx: [facility] - PN: Qual - VTE Deep Vein Thrombosis/Pulmonary Embolism Present on Admission: No
[2018-10-24] MEDS: ASPIRIN 81 MG TAB.CHEW PO SCH (08:28)
[2018-10-24] MEDS: METOPROLOL SUCCINATE 25 MG TAB.XL.24H PO SCH (08:28)
[2018-10-24] MEDS: ENOXAPARIN 40 MG/0.4 ML SYRINGE SQ SCH (08:29)
--- NOTE | 2018-10-24 09:06 | Discharge Summary ---
Medical - DS: Prov Patient information: Note initiated : 10/24/18 at 9:01 am Service Date, if different from initiated Date: [] Patient: Shay Ramirez 58 y/o M admitted on 10/22/18 for shortness of breath. Chief Complaint: [] Date of admission: 10/22/18 00:24 Discharge date: 10/24/18 Primary care physician: Millie Harrington DO Consults: 10/21/18 Consult to Physician [CONS] Stat Comment: Consulting Provider: Jamari Lopez Reason For Exam: Physician to Consult Medical - DS: Meds - Discharge Medications Prescriptions: Amiodarone HCl [Cordarone] 400 mg PO BIDCC #60 tablet Aspirin 81 mg PO DAILY #30 tab.chew Furosemide [Lasix] 20 mg PO DAILY #30 tablet Lisinopril [Zestril] 2.5 mg PO DAILY #30 tablet Metoprolol Succinate [Toprol Xl] 25 mg PO DAILY #30 tab.xl.24h Spironolactone [Aldactone] 25 mg PO DAILY #30 tab Active and Home Medications: Home Medications Cephalexin [Keflex] 500 mg PO BID 10/21/18 [History Confirmed 10/21/18 Last Taken Unknown] Diltiazem [Cardizem Cd] 120 mg PO DAILY #30 cap 10/21/18 [Rx Confirmed 10/21/18 Last Taken Unknown] Medical - DS: Hosp Hospital course: Mr. Ramirez is a 58 year old M Mr. Ramirez is a 58 year old M presents with shortness of breath. Patient states she had increased shortness of breath for 1 month ever since he got sick with upper respiratory tract infection or a sinus infection at [facility]. He has had a productive cough of sputum which is sometimes clear sometimes yellow sometimes white, this cough is been present since he got sick a month ago however the cough is much better. Shortness of breath is since she stayed the same. He saw a primary care provider who had a CT of the chest that showed some atelectasis and old scarring and a referral was made to pulmonology but he has not seen analytical chemist yet. He was also referred to see Dr. Arce who said he saw a year ago and was told he had an irregular rhythm but no new medications were started he also told he had poor cardiac function but no medications were started at that time. He called Dr. Arce's office today to make an appointment and they asked about his symptoms after told him he has had a heart elevated heart rate for a month as well as some shortness of breath they told him to go to the ER. In the ER earlier today he is had a tachycardia 130s. Case discussed with graphics production specialist at [facility] Dr. Catalan patient was given a p.o. diltiazem which brought his heart rate down. EKG which was reviewed between ER physician and graphics production specialist appear to be flutter 2-1 at that time. Now it appears to be variable block flutter. His heart rate is essentially controlled at rest but anytime he moves it will jump up to 120s 130s. He did not receive any improvement in his shortness of breath after better rate controlled earlier today in the ER. And was still short of breath when he went home and thus came back. He denies any chest pain. He has good oxygenation. Chest x-ray showed some cephalization and prominent pulmonary vasculature. Was given Lasix 20 IV in the ER with 650 urine output. He denies any new leg swelling he does have a little bit of puffiness that he notices while wearing work boots but that has not changed in the past couple months. 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 No new complaints. No shortness of breath at rest. No lightheadedness. 10/23 Rate 80s-90s while sleeping. This morning while awake and moving seems to be consistently be high 20s-130. Denies any chest pain shortness of breath. Ambulated to the shower without problems. Started on oral amio 400 tid yesterday, but still uncontrolled rate although essentially asymptomatic on last he exerts himself quite a bit. Did discuss case with Dr. Arce recommended IV amiodarone load instead of oral. 10/24 Heart weight heart rate around 100 last night with episodes in the 120s, Patient asymptomatic. Walk the halls yesterday without shortness of breath which is significantly improved. overall feels much improved. Patient adamant about leaving. I cautioned him about his condition and his rate that is not quite optimized and instructed him to follow-up closely with cardiology as soon as possible, his graphics production specialist Dr. Arce. Clinical status improved and stable. Discharge diagnosis: Flutter with RVR systolic heart failure - Time Spent with Patient Total time spent providing and/or coordinating discharge services: Greater than 30 minutes Medical - DS: Exam - Constitutional Vitals: Vital Signs Temp Pulse Pulse Resp BP BP Pulse Ox 10/24/18 08:00 120 H 93 10/24/18 07:47 97.4 F 18 124/98 93 10/24/18 04:00 98.1 F 18 111/84 92 10/23/18 23:49 97.0 F 18 112/85 92 10/23/18 20:54 112 H 16 10/23/18 20:46 96.9 F L 117 H 24 H 128/100 94 10/23/18 16:00 98.2 F 18 150/98 95 10/23/18 12:16 97.9 F 123 H 18 128/99 96 Intake and Output 10/23/18 10/24/18 10/24/18 21:59 05:59 13:59 Intake Total 440 914 360 Output Total 1000 375 Balance -560 914 -15 Intake: IV 200 194 Nexterone 360 mg In Premix 1 200 194 Bag @ 1 MG/MIN 33.33 mls/hr IV .Q6H1M [facility] Rx#:[id number] Oral 240 720 360 Output: Void Amount 1000 375 Other: Meal Dinner Breakfast Percent of Meal Consumed 100% 75% Feeding Ability Independent Independent Urine Color Light Kayleigh Dark Yellow Urine Odor Strong # Voids 1 2 Weight 100.244 kg Medical - DS: Data Labs on day of discharge: Labs from last 24 hours 10/24/18 03:44 Sodium 138 Potassium 4.5 Chloride 102 Carbon Dioxide 20 L Anion Gap 16.0 BUN 31 H Creatinine 1.2 GFR Calculation 66 Glucose 99 Uric Acid 7.8 Calcium 9.6 Phosphorus 3.7 Magnesium 2.1 Total Bilirubin 0.9 Direct Bilirubin < 0.2 GGT 45 AST 23 ALT 33 Alkaline Phosphatase 52 Lactate Dehydrogenase 231 Total Protein 6.4 Albumin 3.6 Globulin 2.8 Albumin/Globulin Ratio 1.3 Triglycerides 104 Medical - DS: A/P - Patient/Caregiver Discharge Instructions Activity: increase activity as tolerated Diet: Low Sodium (2gm) Other Amb Orders: Comprehensive Metabolic Panel Time Frame: 1 Week, Location: None Selected - Follow up Plan Follow up with: Andres Arce MD [Physician] - Haydee Lance MD [Physician] - (evaluate for AICD) Millie Harrington DO [Primary Care Provider] - Disposition: Home, Self-Care Prognosis: Undetermined Rehab Potential: Fair Medical - DS: Qual - VTE Deep Vein Thrombosis/Pulmonary Embolism Present on Admission: No
[2018-10-25] MEDS ORDERED: SPIRONOLACTONE 25 MG TABLET PO SCH (09:00)
== END 2018-10-24 12:25 | disposition home or self-care (01) | DRG 308 ==
LOC: ED 21:15 → ICU 10-22 00:24
PROVIDERS: ADMIT Internal Medicine; ATTEND Internal Medicine